=== PATIENT | female | born 1960 | race Caucasian/White ===

== ENCOUNTER 2024-11-15 10:22 | Inpatient (IN) | payer MEDICARE, OTHER ==
[~2024-11-15] VITALS: Ht 160 cm; Wt 93.6 kg
[2024-11-15 10:50] LABS: BASOPHILS % (AUTO) 0.3 % (0.0-2.0); EOSINOPHILS % (AUTO) 0.3 % (0.0-7.0); HEMATOCRIT 26.2 % (31.2-41.9); HEMOGLOBIN 8.5 g/dL (10.9-14.3); LYMPHOCYTES # (AUTO) 0.3 K/uL (0.8-4.8); LYMPHOCYTES % (AUTO) 6.5 % (20.5-51.5); MEAN CORPUSCULAR HEMOGLOBIN 27.2 uug (24.7-32.8); MEAN CORPUSCULAR HGB CONC 33 g/dL (32.3-35.6); MEAN CORPUSCULAR VOLUME 83.5 fL (75.5-95.3); MONOCYTES # (AUTO) 0.3 K/uL (0.1-1.30); NEUTROPHILS # (AUTO) 3.3 K/uL (1.8-8.9); NEUTROPHILS % (AUTO) 84.9 % (38.5-71.5); PLATELET COUNT (AUTO) 165 K/uL (179-408); RED BLOOD CELL COUNT(AUTO) 3.14 MIL/uL (3.63-4.92); RED CELL DISTRIBUTION WIDTH 20.2 % (12.3-17.7); WHITE BLOOD COUNT (AUTO) 3.8 K/uL (3.8-11.8)
[2024-11-15 10:51] LABS: DIFFERENTIAL COMMENT 1
[2024-11-15] MEDS ORDERED: ONDANSETRON 4 MG/2 ML VIAL ONE ×2 (10:52→19:35)
[2024-11-15] MEDS ORDERED: MORPHINE SULFATE 4 MG/1 ML DISP.SYRIN ONE ×2 (10:53→19:36)
[2024-11-15 10:58] LABS: CALCIUM 8.7 mg/dL (8.5-10.1); CARBON DIOXIDE 19 mmol/L (21-32); CHLORIDE 103 mmol/L (98-107); CREATININE 3.3 mg/dL (0.6-1.3); GLUCOSE 183 mg/dL (74-106); POTASSIUM 4.7 mmol/L (3.5-5.1); SODIUM SERUM 136 mmol/L (136-145)
[2024-11-15] MEDS: ONDANSETRON 4 MG/2 ML VIAL IV ONE ×2 (11:00→19:40)
[2024-11-15] MEDS: MORPHINE SULFATE 4 MG/1 ML DISP.SYRIN IV ONE ×2 (11:00→19:40)
[2024-11-15 11:04] LABS: UREA NITROGEN, BLOOD 111 mg/dL (7-18)
[2024-11-15 11:05] LABS: LACTIC ACID 2.7 mmol/L (0.4-2.0)
[2024-11-15 11:08] LABS: ALANINE AMINOTRANSFERASE 39 U/L (14-59); ALBUMIN 2.3 g/dL (3.4-5.0); ALKALINE PHOSPHATASE 43 U/L (50-136); ASPARTATE AMINOTRANSFERASE 13 U/L (15-37); BILIRUBIN,DIRECT 0.2 mg/dL (0.0-0.2); BILIRUBIN,TOTAL 0.3 mg/dL (0.2-1.0); NT-PRO BNP 1724 pg/mL (0-125)
[2024-11-15] MEDS ORDERED: CHOL10005 PO (11:12)
[2024-11-15] MEDS ORDERED: CEFPODOXIME PO (11:12)
[2024-11-15] MEDS ORDERED: AMLO10TA59 PO (11:12)
[2024-11-15] MEDS ORDERED: ETHA25TA2 PO (11:12)
[2024-11-15] MEDS ORDERED: SENN8.6T19 PO (11:12)
[2024-11-15] MEDS ORDERED: SODI650T PO (11:12)
[2024-11-15] MEDS ORDERED: OXYC5CAP18 PO (11:12)
[2024-11-15] MEDS ORDERED: FOLI1TAB27 PO (11:12)
[2024-11-15] MEDS ORDERED: PRED20TA PO (11:12)
[2024-11-15] MEDS ORDERED: FOLI0.8T23 PO (11:12)
[2024-11-15] MEDS ORDERED: CARV25TA2 PO (11:12)
[2024-11-15] MEDS ORDERED: VITAMIN (11:12)
[2024-11-15] MEDS ORDERED: ERGO500040 PO (11:12)
[2024-11-15 11:16] LABS: PHOSPHOROUS 3.5 mg/dL (2.5-4.9)
[2024-11-15] MEDS ORDERED: CEFTRIAXONE /D5W 50ML IVPB **ER PYXIS IV ONE (11:45)
[2024-11-15] MEDS: CEFTRIAXONE 2 G in IV DEXTROSE 5% 100 ML IV ONE (11:53)
[2024-11-15] MEDS: IV NORMAL SALINE 500 ML BAG IV ONE (11:53)
[2024-11-15] MEDS ORDERED: SODIUM BICARBONATE 8.4% 50 MEQ/50 ML DISP.SYRIN IV ONE (12:47)
[2024-11-15] MEDS: SODIUM BICARBONATE 8.4% 50 MEQ/50 ML DISP.SYRIN IV ONE (12:53)
[2024-11-15] MEDS ORDERED: MORPHINE SULFATE 2 MG/1 ML DISP.SYRIN ONE (14:39)
[2024-11-15] MEDS: MORPHINE SULFATE 2 MG/1 ML DISP.SYRIN IV ONE (14:41)
[2024-11-15 18:15] LABS: *BILIRUBIN,URIN NEGATIVE (NEGATIVE); *CLARITY,URINE CLEAR (CLEAR); *COLOR,URINE YELLOW (YELLOW); *KETONES,URINE NEGATIVE (NEGATIVE); *PROTEIN,URINE 1+ (NEGATIVE); *UROBILINOGEN,URINE 0.2 E.U./dl (NORMAL); LEUKOCYTE ESTERASE ,URINE TRACE (NEGATIVE); NITRITE, URINE POSITIVE (NEGATIVE); PH,URINE 5.5 (5.0-8.0); UGLUCOSE NEGATIVE (NEGATIVE)
[2024-11-15 18:23] LABS: *BLOOD, URINE NEGATIVE (NEGATIVE)
[2024-11-15 18:24] LABS: BACTERIA,URINE FEW /HPF (NONE SEEN); RBC,URINE 0-3 /HPF (0-3)
[2024-11-15] MEDS ORDERED: ACETAMINOPHEN 325 MG TABLET PO PRN (22:15)
[2024-11-15] MEDS ORDERED: ONDANSETRON 4 MG/2 ML VIAL IV PRN (22:15)
[2024-11-15] MEDS ORDERED: DEXTROSE 50% 50 ML DISP.SYRIN IV PRN (22:30)
[2024-11-15] MEDS: BLOOD SUGAR DIAGNOSTIC 1 EACH STRIP VI SCH (22:38)
[2024-11-15] MEDS: INSULIN REGULAR, HUMAN 300 UNITS/3 ML VIAL SQ PRN (22:39)
[2024-11-15] MEDS: HYDROMORPHONE 1 MG/1 ML DISP.SYRIN IV PRN (22:47)
[2024-11-15] MEDS: ERGOCALCIFEROL 50,000 UNIT CAPSULE PO SCH (22:49)
[2024-11-16] VITALS (7 sets, daily range): BP systolic 115–160; BP diastolic 37–58; TEMP 97.7–98.5; O2SAT 97–100
[2024-11-16] MEDS: diphenhydrAMINE 50 MG/1 ML VIAL IV PRN (02:00)
[2024-11-16] MEDS: OXYCODONE HCL 5 MG TABLET PO PRN (02:01)
[2024-11-16] MEDS: PANTOPRAZOLE SODIUM 40 MG TABLET.DR PO SCH (06:30)
[2024-11-16 06:52] LABS: BASOPHILS % (AUTO) 0.1 % (0.0-2.0); HEMATOCRIT 27.3 % (31.2-41.9); LYMPHOCYTES # (AUTO) 0.2 K/uL (0.8-4.8); LYMPHOCYTES % (AUTO) 3.5 % (20.5-51.5); MEAN CORPUSCULAR HEMOGLOBIN 27.9 uug (24.7-32.8); MEAN CORPUSCULAR HGB CONC 33 g/dL (32.3-35.6); MEAN CORPUSCULAR VOLUME 85.1 fL (75.5-95.3); MONOCYTES # (AUTO) 0.3 K/uL (0.1-1.30); MONOCYTES % (AUTO) 5.3 % (0.0-11.0); NEUTROPHILS # (AUTO) 4.7 K/uL (1.8-8.9); NEUTROPHILS % (AUTO) 91.1 % (38.5-71.5); PLATELET COUNT (AUTO) 125 K/uL (179-408); RED BLOOD CELL COUNT(AUTO) 3.21 MIL/uL (3.63-4.92); RED CELL DISTRIBUTION WIDTH 20.6 % (12.3-17.7); WHITE BLOOD COUNT (AUTO) 5.2 K/uL (3.8-11.8)
[2024-11-16 07:05] LABS: DIFFERENTIAL COMMENT 1
[2024-11-16 07:09] LABS: ALBUMIN 2.2 g/dL (3.4-5.0); BILIRUBIN,TOTAL 0.2 mg/dL (0.2-1.0); CALCIUM 8.4 mg/dL (8.5-10.1); CREATININE 3.1 mg/dL (0.6-1.3); MAGNESIUM 2.2 mg/dL (1.8-2.4); PHOSPHOROUS 4.3 mg/dL (2.5-4.9); POTASSIUM 5.5 mmol/L (3.5-5.1); TOTAL PROTEIN, SERUM 5.1 g/dL (6.4-8.2)
[2024-11-16 07:14] LABS: ERYTHROCYTE SEDIMENTATION RATE < 1 MM/HR (0-20)
[2024-11-16] MEDS ORDERED: LISPRO (07:17)
[2024-11-16] MEDS ORDERED: long acting insulin (07:17)
[2024-11-16 08:59] LABS: THYROID STIMULATING HORMONE 0.092 mIU/mL (0.358-3.740)
[2024-11-16] MEDS: FOLIC ACID/VITAMIN B COMP W-C TABLET PO SCH (09:21)
[2024-11-16] MEDS: predniSONE 20 MG TABLET PO SCH (09:21)
[2024-11-16] MEDS: AMLODIPINE 10 MG TABLET PO SCH (09:21)
[2024-11-16] MEDS: FOLIC ACID 1 MG TABLET PO SCH (09:21)
[2024-11-16] MEDS: CARVEDILOL 25 MG TABLET PO SCH (09:21)
[2024-11-16] MEDS: SENNOSIDES 1 TABLET PO SCH (09:21)
[2024-11-16] MEDS: INSULIN REGULAR, HUMAN 1000 UNIT/10 ML VIAL SQ PRN (09:23)
[2024-11-16] MEDS: hydrALAZINE HCL 25 MG TABLET PO PRN (11:49)
[2024-11-16] MEDS: CEFTRIAXONE 1 G in IV DEXTROSE 5% 50 ML IV SCH (11:50)
[2024-11-16] MEDS: SODIUM ZIRCONIUM CYCLOSILICATE 10 GM POWD.PACK PO ONE (15:54)
[2024-11-16] MEDS ORDERED: INSU3INS6 SQ (17:24)
[2024-11-16] MEDS: INSULIN GLARGINE,HUM 300 UNITS/3 ML CARTRIDGE SQ SCH (20:51)
[2024-11-17 05:50] VITALS: BP 150/54; TEMP 97.7; O2SAT 100
[2024-11-17 06:18] LABS: BASOPHILS % (AUTO) 0.3 % (0.0-2.0); EOSINOPHILS % (AUTO) 0.1 % (0.0-7.0); HEMATOCRIT 25.2 % (31.2-41.9); HEMOGLOBIN 8.6 g/dL (10.9-14.3); LYMPHOCYTES # (AUTO) 0.2 K/uL (0.8-4.8); LYMPHOCYTES % (AUTO) 4.4 % (20.5-51.5); MEAN CORPUSCULAR HEMOGLOBIN 27.7 uug (24.7-32.8); MEAN CORPUSCULAR HGB CONC 34 g/dL (32.3-35.6); MEAN CORPUSCULAR VOLUME 81.6 fL (75.5-95.3); MONOCYTES # (AUTO) 0.3 K/uL (0.1-1.30); MONOCYTES % (AUTO) 5.6 % (0.0-11.0); NEUTROPHILS # (AUTO) 4.4 K/uL (1.8-8.9); NEUTROPHILS % (AUTO) 89.6 % (38.5-71.5); PLATELET COUNT (AUTO) 153 K/uL (179-408); RED BLOOD CELL COUNT(AUTO) 3.09 MIL/uL (3.63-4.92); RED CELL DISTRIBUTION WIDTH 19.7 % (12.3-17.7); WHITE BLOOD COUNT (AUTO) 4.9 K/uL (3.8-11.8)
[2024-11-17 06:21] LABS: DIFFERENTIAL COMMENT 1
[2024-11-17 06:39] LABS: CALCIUM 7.9 mg/dL (8.5-10.1); MAGNESIUM 1.9 mg/dL (1.8-2.4); PHOSPHOROUS 2.7 mg/dL (2.5-4.9)
[2024-11-17 07:47] VITALS: BP 139/50; TEMP 97.6; O2SAT 100
[2024-11-17 11:02] VITALS: BP 156/49; TEMP 97.7; O2SAT 100
[2024-11-17] MEDS: GENTAMICIN SULFATE 0.1% OINT 15 GM TUBE TOP SCH (12:45)
[2024-11-17] MEDS: SODIUM HYPOCHLORITE 0.125% (QUARTER STRENGTH) 473 ML BOTTLE TP SCH (12:45)
[2024-11-17] MEDS: MEDIHONEY= THERAHONEY 1.5 OZ TUBE TOP SCH (12:45)
[2024-11-17] MEDS ORDERED: MEDIHONEY= THERAHONEY 1.5 OZ TUBE TOP SCH (12:45)
[2024-11-17 15:46] VITALS: BP 136/40; TEMP 97.6; O2SAT 98
[2024-11-17 19:25] VITALS: BP 122/41; TEMP 98.3; O2SAT 98
[2024-11-17 23:30] VITALS: BP 123/40; TEMP 98.2; O2SAT 96
[2024-11-18 05:08] LABS: HEPATITIS B SURFACE AB, QUAL Non Reactive (.); HEPATITIS B SURFACE AG Negative (Negative)
[2024-11-18 05:15] VITALS: BP 138/50; TEMP 97.3; O2SAT 98
[2024-11-18 06:56] LABS: BASOPHILS % (AUTO) 0.1 % (0.0-2.0); EOSINOPHILS % (AUTO) 0.2 % (0.0-7.0); HEMATOCRIT 25.9 % (31.2-41.9); HEMOGLOBIN 8.6 g/dL (10.9-14.3); LYMPHOCYTES # (AUTO) 0.2 K/uL (0.8-4.8); MEAN CORPUSCULAR HEMOGLOBIN 27.4 uug (24.7-32.8); MEAN CORPUSCULAR HGB CONC 33 g/dL (32.3-35.6); MEAN CORPUSCULAR VOLUME 82.3 fL (75.5-95.3); MONOCYTES # (AUTO) 0.3 K/uL (0.1-1.30); MONOCYTES % (AUTO) 6.2 % (0.0-11.0); NEUTROPHILS # (AUTO) 4.4 K/uL (1.8-8.9); NEUTROPHILS % (AUTO) 88.5 % (38.5-71.5); PLATELET COUNT (AUTO) 150 K/uL (179-408); RED BLOOD CELL COUNT(AUTO) 3.14 MIL/uL (3.63-4.92); RED CELL DISTRIBUTION WIDTH 19.4 % (12.3-17.7)
[2024-11-18 07:02] LABS: DIFFERENTIAL COMMENT 1
[2024-11-18 07:17] LABS: CALCIUM 7.7 mg/dL (8.5-10.1); CREATININE 2.7 mg/dL (0.6-1.3); POTASSIUM 4.8 mmol/L (3.5-5.1)
[2024-11-18 07:19] VITALS: BP 160/56; TEMP 98.1; O2SAT 100
[2024-11-18 10:47] VITALS: BP 121/51; TEMP 98.1; O2SAT 100
[2024-11-18 15:11] VITALS: BP 131/54; TEMP 98.3; O2SAT 97
[2024-11-18 19:45] VITALS: BP 124/49; TEMP 98; O2SAT 98
[2024-11-18] MEDS: INSULIN GLARGINE,HUM 300 UNITS/3 ML CARTRIDGE SQ SCH (21:35)
[2024-11-19 00:27] VITALS: BP 118/39; TEMP 98.1; O2SAT 98
[2024-11-19 05:34] VITALS: BP 122/42; TEMP 98.4; O2SAT 100
[2024-11-19 07:10] LABS: BASOPHILS % (AUTO) 0.2 % (0.0-2.0); EOSINOPHILS % (AUTO) 0.4 % (0.0-7.0); HEMATOCRIT 25.6 % (31.2-41.9); HEMOGLOBIN 8.5 g/dL (10.9-14.3); LYMPHOCYTES # (AUTO) 0.3 K/uL (0.8-4.8); LYMPHOCYTES % (AUTO) 4.9 % (20.5-51.5); MEAN CORPUSCULAR HEMOGLOBIN 27.2 uug (24.7-32.8); MEAN CORPUSCULAR HGB CONC 33 g/dL (32.3-35.6); MEAN CORPUSCULAR VOLUME 81.6 fL (75.5-95.3); MONOCYTES # (AUTO) 0.3 K/uL (0.1-1.30); MONOCYTES % (AUTO) 4.9 % (0.0-11.0); NEUTROPHILS # (AUTO) 5.5 K/uL (1.8-8.9); NEUTROPHILS % (AUTO) 89.6 % (38.5-71.5); PLATELET COUNT (AUTO) 144 K/uL (179-408); RED BLOOD CELL COUNT(AUTO) 3.13 MIL/uL (3.63-4.92); RED CELL DISTRIBUTION WIDTH 19.7 % (12.3-17.7); WHITE BLOOD COUNT (AUTO) 6.2 K/uL (3.8-11.8)
[2024-11-19 07:14] LABS: DIFFERENTIAL COMMENT 1
[2024-11-19 07:23] LABS: CREATININE 2.3 mg/dL (0.6-1.3); PHOSPHOROUS 3.9 mg/dL (2.5-4.9); POTASSIUM 4.3 mmol/L (3.5-5.1)
[2024-11-19 07:29] VITALS: BP 133/52; TEMP 98.1; O2SAT 99
[2024-11-19 10:55] VITALS: BP 130/48; TEMP 98.3; O2SAT 98
[2024-11-19 12:53] LABS: NEUTROPHILS % (MANUAL) 89 % (42-75)
[2024-11-19 12:54] LABS: BAND % (MANUAL) 1 % (0-10); LYMPHOCYTES % (MANUAL) 2 % (20-40); MONOCYTES % (MANUAL) 5 % (2-10); MYELOCYTES % 3 % (0-0); PLATELET ESTIMATE DECREASED
[2024-11-19 15:46] VITALS: BP 112/50; TEMP 98; O2SAT 97
[2024-11-19 17:58] VITALS: BP 112/50
[2024-11-21] MEDS ORDERED: ERGOCALCIFEROL 50,000 UNIT CAPSULE PO SCH (09:00)
== END 2024-11-19 18:15 | DRG 689 ==
LOC: ER 10:22 → TELE3 20:56 → MEDSURG3 11-19 09:10
PROVIDERS: ADMIT Internal Medicine; ATTEND Internal Medicine
PROC: 05HD33Z Insertion of Infusion Device into Right Cephalic Vein, Percutaneous Approach (ICD-10-PCS; 2024-11-15)
PROC: 5A1D70Z Performance of Urinary Filtration, Intermittent, Less than 6 Hours Per Day (ICD-10-PCS; principal; 2024-11-17)
DX: N39.0 Urinary tract infection, site not specified (principal); L89.313 Pressure ulcer of right buttock, stage 3; L89.323 Pressure ulcer of left buttock, stage 3; N18.6 End stage renal disease; I12.0 Hypertensive chronic kidney disease with stage 5 chronic kidney disease or end stage renal disease; L03.116 Cellulitis of left lower limb; L03.115 Cellulitis of right lower limb; E87.20 Acidosis, unspecified; E44.0 Moderate protein-calorie malnutrition; L12.0 Bullous pemphigoid; E11.22 Type 2 diabetes mellitus with diabetic chronic kidney disease; Z99.2 Dependence on renal dialysis; Z91.158 Patient's noncompliance with renal dialysis for other reason; L98.9 Disorder of the skin and subcutaneous tissue, unspecified; D63.1 Anemia in chronic kidney disease; E87.6 Hypokalemia; E66.9 Obesity, unspecified; Z68.34 Body mass index [BMI] 34.0-34.9, adult; R94.6 Abnormal results of thyroid function studies; R23.8 Other skin changes; Z79.4 Long term (current) use of insulin; E11.65 Type 2 diabetes mellitus with hyperglycemia
CPT/HCPCS: 36415; 71045; 83550; 83605; 83735; 84100; 84443; 84484; 85025; 85651; 85730; 86706; 87040; 87077; 87086; 87340; A4606; A4663; A6209; A6213; G0378; J0696; J1171; J1200; J1815; J2270; J2405; J3490; J7040; J7512